=== PATIENT | male | born 1965 | race Caucasian/White ===

== ENCOUNTER 2022-07-15 06:38 | Emergency (ER) | payer OTHER, SELFPAY ==
[2022-07-15] VITALS (12 sets, daily range): BP systolic 128–144; BP diastolic 79–98; PULSE 64–71; RESP 16–20; TEMP 36.6; O2SAT 84–100; BMI 24.4
[2022-07-15] MEDS: THIAMINE 100 MG TABLET PO (07:36)
[2022-07-15 07:50] LABS: Basophils Percent Auto 1.1 % (0.0-3.0); Eosinophils Percent Auto 1.1 % (0.0-7.0); Hematocrit 37.7 % (37.0-53.0); Immature Granulocytes Pct Auto 0.5 %; Lymphocytes Percent Auto 22.9 % (20-44); Mean Corpuscular HGB Conc 35 gm/dL (32-36); Mean Corpuscular Hemoglobin 33 pg (26-34); Mean Corpuscular Volume 96 fL (80-100); Monocytes Percent Auto 8.2 % (0.0-11.0); Neutrophils Percent Auto 66.2 % (42.0-72.0); RDW Coefficient of Variation % 14.6 % (11.5-15.5); Red Blood Count 3.91 m/uL (4.30-5.90); White Blood Count* 3.76 K/uL (4.50-11.00)
--- NOTE | 2022-07-15 07:53 | ED.GENADULT ---
HPI - General Adult General Chief complaint: Back Injury/Pain Stated complaint: back pain Time Seen by Provider: 07/15/22 06:48 Source: patient and family Mode of arrival: ambulatory History of Present Illness HPI narrative: 57-year-old male with known history of chronic low back pain and chronic liver disease with alcoholism presents to the emergency department nonspecific complaints. In his report that he is unable to care for himself at home. Am able to pull up an epic note explaining his longstanding history of continued alcohol use with significant cirrhosis and longstanding back issues. At that visit, he was also unable to care for himself on 1 for. Family reporting that he has had a 1 month decline. He continues to drink alcohol. His admits that she gets it for him. He states that he drinks due to his back pain and cannot stop drinking because his pain is uncontrolled. It looks as though he has had appropriate referrals for marketing project specialist. It looks as though he has also had an office visit with GI regarding his alcoholism from 06/17/2022. As stated he continues to drink. States that he is currently drinking about 8 oz of hard alcohol in a glass per day but his answers change frequently throughout our interview. He is unable to get himself up and go to the bathroom. It sounds as though this has been gradually coming on, denies any new trauma or injury. He also has a known inguinal hernia which appears to have been investigated on 06/20/2022 in the emergency department. Family reports that the last time he was sent to the hospital ?they gave him pills and did not do anything?. I have not yet had time to review that full hospitalization. I do also have records from an MRI of the back basically showing some degenerative changes but no severe impairment or cauda equina syndrome or spinal impingement. When I specifically ask his if she thinks he needs to be in a longterm, she wants a clarification of what those goals would be. I explained that he would probably receive about 30 minutes of physical therapy per day and assistance getting to the bathroom. If he is still drinking he is not a good candidate for an intensive rehab center. She is uncertain if this would be beneficial. It sounds as though the family does not have appropriate insight into the severity of his liver disease or have chosen not to accept this diagnosis. I do clarify that there were absolutely no acute changes today that made him come to a new emergency department when all of their care has been through [facility] and [facility]. Medical history in summary is most notable for severe alcoholic cirrhosis, chronic back pain, hypertension. He also seems to have a history of depression. It looks as though he was recently started on Lyrica as previously been on Celebrex. It looks as though Valium and [place] were discontinued. Clinic note from 07/07/2022 is extensively reviewed. Allergies are to azithromycin causing rash. Socially patient continues to have significant alcohol intake and declining overall function but does remain his own guardian. Related Data Home Medications Medication Instructions Recorded Confirmed celecoxib 100 mg capsule mg 07/15/22 cyclobenzaprine 10 mg tablet mg 07/15/22 diazepam 5 mg tablet mg 07/15/22 furosemide 40 mg tablet mg 07/15/22 hydrocodone 5 mg-acetaminophen 325 tab 07/15/22 mg tablet ibuprofen 800 mg tablet mg 07/15/22 losartan 50 mg-hydrochlorothiazide tab 07/15/22 12.5 mg tablet methocarbamol 500 mg tablet mg 07/15/22 pregabalin 75 mg capsule mg 07/15/22 spironolactone 100 mg tablet mg 07/15/22 Allergies Allergy/AdvReac Type Severity Reaction Status Date / Time azithromycin Allergy Mild Rash Verified 07/15/22 07:08 [facility] Medical History Alcohol dependence Alcohol-induced chronic pancreatitis Alcoholic steatohepatitis Anxiety Chronic midline low back pain with sciatica Essential hypertension Non-recurrent unilateral inguinal hernia without obstruction or gangrene Polyarthralgia Thrombocytopenia Social History Smoking Status: Current every day smoker What tobacco products do you use: cigarettes Smoking packs per day: 1 Smoking cigarettes per day: 20.0 Second hand tobacco smoke exposure: No How often do you have a drink containing alcohol: 4 or more times a week How many standard drinks containing alcohol do you have on a typical day: 7 to 9 How often do you have six or more drinks on one occasion: Daily or almost daily AUDIT-C Alcohol total score: 11 Non-prescribed substance use: denies use service: Yes Exam Const: Vital Signs, click to edit/add: Vital Signs - 24 hr 07/15/22 06:52 07/15/22 08:31 07/15/22 08:32 Temperature 97.8 F Pulse Rate 66 65 Pulse Rate [Left P ulse Oximeter] 70 Respiratory Rate 20 16 Blood Pressure 135/89 Blood Pressure [Ri ght Upper Arm] 144/93 H Pulse Oximetry 97 98 98 Oxygen Delivery Me thod Room Air Nasal Cannula Oxygen Flow Rate 1 07/15/22 07:00 07/15/22 07:30 07/15/22 08:00 Temperature Pulse Rate Pulse Rate [Left P ulse Oximeter] 65 66 64 Respiratory Rate Blood Pressure Blood Pressure [Ri ght Upper Arm] 144/93 H 140/79 H 130/82 Pulse Oximetry 95 100 96 Oxygen Delivery Me thod Nasal Cannula Nasal Cannula Nasal Cannula Oxygen Flow Rate 1 1 1 07/15/22 08:20 Temperature Pulse Rate Pulse Rate [Left P ulse Oximeter] 68 Respiratory Rate Blood Pressure Blood Pressure [Ri ght Upper Arm] 128/98 H Pulse Oximetry 99 Oxygen Delivery Me thod Nasal Cannula Oxygen Flow Rate 1 Documenting provider has reviewed patient's vital signs: yes Common normals: no apparent distress Other: Poor insight, smells of ammonia and alcohol HENMT: Common normals: normocephalic and head/scalp atraumatic Head and scalp: normocephalic and atraumatic Mouth: oral and palatal mucosa normal Throat: posterior oropharynx normal Eye: Other: Mild scleral icterus with injected conjunctiva. Neck & C-Spine: Common normals: full ROM and no lymphadenopathy Lymph: Lymphatic: no lymphadenopathy noted Resp: Common normals: normal respiratory effort, no use of accessory muscles and clear to auscultation bilaterally Auscultation: clear to auscultation bilaterally Other: sLight slurring of his words Cardio: Common normals: regular rate, regular rhythm, S1 normal heart sound, S2 normal heart sound and no murmurs Rate: regular rate Rhythm: regular rhythm Heart sounds: S1 normal and S2 normal GI: Other: Moderate ascites noted. Liver is enlarged 4 cm below the costal margin. Nontender. No obvious mass. Lower abdominal bulge consistent with hernia is noted though not thoroughly examined. Extremity: Other: 1+ edema to lower extremities. Overall muscle wasting noted. Patient with weakness to dorsiflexion mildly bilaterally but has plantar flexion and good flexion at the hips and knees still. Can move his upper extremities on command. No asterixis. Minimal tremor of the hands noted. Neuro: Other: Cerebellar testing appears normal. Psych: Attitude: calm Activity/motor behavior: appropriate eye contact Thought process: circumstantial Insight: poor Judgement: poor Skin: Narrative: Mild jaundice to face only. Course Vital Signs Vital signs: Initial Vital Signs Temperature 97.8 F 07/15/22 06:52 Temperature Source Temporal Artery Scan 07/15/22 06:52 Pulse Rate 70 07/15/22 06:52 Pulse Rhythm 07/15/22 06:52 Respiratory Rate 20 07/15/22 06:52 Blood Pressure 144/93 H 07/15/22 06:52 Blood Pressure Mean 110 07/15/22 06:52 Blood Pressure Position Semi-Fowlers 07/15/22 06:52 Pulse Oximetry 97 07/15/22 06:52 Oxygen Delivery Method 07/15/22 06:52 Vital Signs Temperature 97.8 F 07/15/22 06:52 Pulse Rate 70 07/15/22 06:52 Respiratory Rate 20 07/15/22 06:52 Blood Pressure 144/93 H 07/15/22 06:52 Pulse Oximetry 97 07/15/22 06:52 Oxygen Delivery Method 07/15/22 06:52 Temperature 97.8 F 07/15/22 06:52 Pulse Rate 65 07/15/22 08:32 Respiratory Rate 16 07/15/22 08:31 Blood Pressure 135/89 07/15/22 08:31 Pulse Oximetry 98 07/15/22 08:32 Oxygen Delivery Method 07/15/22 08:31 Oxygen Flow Rate 1 07/15/22 08:31 Medical Decision Making MDM Narrative Medical decision making narrative: Clinic notes give me the impression that this is a gradual and not sudden decline. All of my physical findings are consistent with his outpatient documented notes. Ever eats that he drinks due to his back pain. I think his insight into his degree of liver dysfunction is a significant problem. I counseled he and his that we should recheck labs to determine is degree of liver dysfunction. I have also let them know we will not be managing his chronic back pain at all today. This will need to be addressed with their outpatient provider. Will check alcohol levels, ammonia levels. There may be an underlying neurological issue as well that is chronic in nature and will be difficult to characterize while he is still drinking. The MRI taken less than 2 months ago does not suggest any cauda equina syndrome or other specific pathology that would explain his weakness. I suspect that this is from his alcohol use. His gave me the impression that they would not be wanting to pursue a longterm but she is uncertain of what to do now. I think they could benefit from a social media coordinator consult and I will place this. Update: Let family know about abnormal labs, low platelets and markedly elevated alcohol level. He is willing to go to detox. We would not do any intervention with the low platelets. This is likely secondary to alcoholism. He is medically cleared to go to detox. He will need outpatient follow-up once he is sober regarding multiple abnormal labs, but these all need to take a backseat to sobriety. is very supportive of him getting intensive alcohol treatment. I did let her know that there could be an underlying neurological disorder that we cannot detect but until he is sober, it will be impossible to treat and/or detect and she was understanding of this. His MRI does not give any clues as to his debility and this should not be further pursued. We are looking into a detox facility, I will be handing over care to day shift partners. Lab Data Labs: Lab Results 07/15/22 07/15/22 07/15/22 Range/Units 07:32 07:32 07:32 WBC 3.76 L (4.50-11.00) K/uL RBC 3.91 L (4.30-5.90) m/uL Hgb 13.0 L (13.5-17.5) gm/dL Hct 37.7 (37.0-53.0) % MCV 96 (80-100) fL MCH 33 (26-34) pg MCHC 35 (32-36) gm/dL RDW Coeff of Marie 14.6 (11.5-15.5) % Plt Count 38 L* (140-440) K/uL Neut % (Auto) 66.2 (42.0-72.0) % Lymph % (Auto) 22.9 (20-44) % [place] % (Auto) 8.2 (0.0-11.0) % Eos % (Auto) 1.1 (0.0-7.0) % Baso % (Auto) 1.1 (0.0-3.0) % Neut # (Auto) 2.50 (1.7-7.0) K/uL Lymph # (Auto) 0.90 (0.90-2.90) K/uL [place] # (Auto) 0.30 (0.00-0.90) K/UL Eos # (Auto) 0.00 (0.00-0.50) K/uL Baso # (Auto) 0.00 (0.00-0.30) K/uL Sodium 145 (135-149) mmol/L Potassium 3.8 (3.6-5.1) mmol/L Chloride 104 (96-114) mmol/L Carbon Dioxide 32 (20-32) mmol/L BUN 8 (7-30) mg/dL Creatinine 0.6 (0.5-1.5) mg/dL Estimated Creat Clear 143.63 Estimated GFR 114 ml/min Glucose 93 (60-115) mg/dL Calcium 8.1 L (8.4-10.6) mg/dL Magnesium 1.8 (1.5-2.6) mg/dL Total Bilirubin 3.7 H (0.1-1.5) mg/dL AST 181 H (12-35) U/L ALT 49 (4-50) U/L Alkaline Phosphatase 115 (40-150) U/L Ammonia 12.0 L (13.1-30.0) umol/L Total Protein 7.3 (6.0-8.3) g/dL Albumin 3.9 (3.3-5.0) g/dL Lipase 603 H (23-300) U/L Ethyl Alcohol (0.01-0.03) % Discharge Plan Discharge Prescriptions: No Action cyclobenzaprine 10 mg tablet Label Comments: TAKE ONE TABLET BY MOUTH THREE TIMES DAILY furosemide 40 mg tablet Label Comments: Take 1 Tablet (40 mg) by mouth daily. methocarbamol 500 mg tablet Label Comments: Take 1-2 Tablets (500-1,000 mg) by mouth at bedtime as needed (muscle spasms). ibuprofen 800 mg tablet Label Comments: Take 1 Tablet (800 mg) by mouth 3 times daily if needed for Pain. hydrocodone-acetaminophen 5-325 mg tablet Label Comments: Take 1 Tablet by mouth every 6 hours if needed for Pain. Max acetaminophen dose: 4000 mg in 24 hrs. spironolactone 100 mg tablet Label Comments: Take 1 Tablet (100 mg) by mouth daily. losartan-hydrochlorothiazide 50-12.5 mg tablet Label Comments: TAKE ONE TABLET BY MOUTH ONE TIME DAILY celecoxib 100 mg capsule Label Comments: TAKE ONE CAPSULE BY MOUTH TWICE DAILY WITH FOOD FOR 30 DAYS diazepam 5 mg tablet pregabalin 75 mg capsule Label Comments: Take 1 Capsule (75 mg) by mouth two times a day. Follow Up/Referrals: Provider,Not a Local [Primary Care Provider] -
[2022-07-15 08:00] LABS: Chloride* 104 mmol/L (96-114)
[2022-07-15 08:01] LABS: Albumin* 3.9 g/dL (3.3-5.0); Potassium* 3.8 mmol/L (3.6-5.1); Sodium* 145 mmol/L (135-149)
[2022-07-15 08:04] LABS: Alanine Aminotransferase* 49 U/L (4-50); Alkaline Phosphatase* 115 U/L (40-150); Aspartate Amino Transferase* 181 U/L (12-35); Bilirubin Total* 3.7 mg/dL (0.1-1.5); Blood Urea Nitrogen* 8 mg/dL (7-30); Calcium* 8.1 mg/dL (8.4-10.6); Carbon Dioxide* 32 mmol/L (20-32); Creatinine* 0.6 mg/dL (0.5-1.5); Est. Creatinine Clearance* 143.63; Estimated Glomerular Filt Rate 114 ml/min; Glucose* 93 mg/dL (60-115); Lipase* 603 U/L (23-300); Total Protein* 7.3 g/dL (6.0-8.3)
[2022-07-15 08:05] LABS: Magnesium* 1.8 mg/dL (1.5-2.6)
[2022-07-15 08:27] LABS: Platelet Count* 38 K/uL (140-440)
--- NOTE | 2022-07-15 08:27 | ED.NURSE ---
critical lab of ETOH 0.40 and platletts of 38 called from lab. aware
[2022-07-15] MEDS: NICOTINE 21 MG PATCH 1 PATCH TRANSDERMA (08:28)
--- NOTE | 2022-07-15 08:58 | PC.NURSE ---
Patient was on 1L NC when ambulance brought him in. Trialed him on RA. Does desaturate when asleep. Has sleep apnea and does not have his unit here nor is he compliant with it at home. Placed him back on 1L NC while asleep. was notified of this and okay with that.
[2022-07-15 09:32] LABS: SARS PCR* Negative SARS-CoV-2 (Negative)
--- NOTE | 2022-07-15 09:54 | PC.NURSE ---
Addendum entered and electronically signed by Mariaelena Savage RN 07/15/22 10:00: Spoke with Rasheeda at [facility] Original Note: Patient was accepted by [facility]. Called dispatch and they will be here within the hour.
--- NOTE | 2022-07-15 10:23 | PC.NURSE ---
Patient left ER with EMS. Report given to Rasheeda at [facility] [place]. aware that patient is going there. All quesitons answered. IV taken out.
[2022-07-15 16:21] LABS: Slide Review Reflex No
== END 2022-07-15 10:24 | disposition home or self-care (01) ==
PROVIDERS: Emergency Provider Family Medicine
DX: M54.50 Low back pain, unspecified (principal); G89.29 Other chronic pain; F10.129 Alcohol abuse with intoxication, unspecified
CPT/HCPCS: 36415; 80053; 82077; 82140; 83690; 83735; 85025; 87635; 99283; 99284; A9270; S4990

== ENCOUNTER 2022-07-15 10:15 | Outpatient (CLI) | payer OTHER, SELFPAY | END 2022-07-15 10:16 | disposition home or self-care (01) | LOC: AMB 07-16 01:03 | PROVIDERS: Visit Provider Emergency Medicine Emergency Medical Services | DX: F10.129 Alcohol abuse with intoxication, unspecified (principal) ==

== ENCOUNTER 2022-07-15 11:38 | Outpatient (CLI) | payer OTHER, SELFPAY | END 2022-07-15 11:39 | disposition home or self-care (01) | LOC: AMB 07-16 00:56 | PROVIDERS: Visit Provider Emergency Medicine Emergency Medical Services | DX: F10.129 Alcohol abuse with intoxication, unspecified (principal) ==

== ENCOUNTER 2022-07-15 12:27 | Emergency (ER) | payer OTHER, SELFPAY ==
[2022-07-15] VITALS (12 sets, daily range): BP systolic 123–155; BP diastolic 70–114; PULSE 63–89; RESP 16–18; TEMP 36.5; O2SAT 89–97
--- NOTE | 2022-07-15 13:49 | ED.GENADULT ---
HPI - General Adult General Chief complaint: Back Injury/Pain Stated complaint: back pain Time Seen by Provider: 07/15/22 13:20 History of Present Illness HPI narrative: This 57-year-old male returns by ambulance after being excepted at [facility] detox. He came in earlier this morning because of back pain. This is a chronic problem for him. His states that he has been on opiates including fentanyl and morphine in the past. He was part of a methadone clinic in this regard but his supplies were removed because he was using alcohol. Now he is no longer on any opiate pain medicines for his chronic degenerative low back pain and so he states that he is using alcohol instead to treat his back pain. He arrived this morning with blood alcohol level at 0.4. He was accepted to [facility] detox and sent there by ambulance. Upon arrival he told them that he was not able to get up and ambulate because of his back pain. When the personnel at the detox center heard this they refused to except him. I had phoned conversation with the ambulance who was at the detox center at the time and stated that the patient can in fact ambulate. He did get up to the bathroom and was able to transfer from the bed to the ambulance cot. The detox center nevertheless refused to except him so he came back here by ambulance. I went in to interview the patient who states that he has chronic back pain. I stated that he in fact can get up and ambulate at which time the patient stated he can do this but he cannot get on and off the toilet without help. Soon after his arrival here the nurse escorted him to the restroom. He was able to sit up on his own and ambulate to the bathroom. He did sit down on the toilet and was able to pull himself up from the toilet without any assistance from anyone. He continues to be significantly intoxicated. He does have liver disease and his platelets this morning were at 38. I did have conversation with his who is now at home stating that he really needs detox and is not a candidate for hospitalization or surgical repair of his back. The patient himself stated that he would just go home. Related Data Home Medications Medication Instructions Recorded Confirmed celecoxib 100 mg capsule mg 07/15/22 cyclobenzaprine 10 mg tablet mg 07/15/22 diazepam 5 mg tablet mg 07/15/22 furosemide 40 mg tablet mg 07/15/22 hydrocodone 5 mg-acetaminophen 325 tab 07/15/22 mg tablet ibuprofen 800 mg tablet mg 07/15/22 losartan 50 mg-hydrochlorothiazide tab 07/15/22 12.5 mg tablet methocarbamol 500 mg tablet mg 07/15/22 pregabalin 75 mg capsule mg 07/15/22 spironolactone 100 mg tablet mg 07/15/22 Allergies Allergy/AdvReac Type Severity Reaction Status Date / Time azithromycin Allergy Mild Rash Verified 07/15/22 07:08 Review of Systems Status of ROS: Reports: 10 or more systems reviewed and unremarkable except as noted in History and below Narrative: Constitutional: No fevers, no weight gain or loss. Eyes: No discharge. No vision changes. HENT: No congestion, no sore throat, no ear pain. Cardiovascular: No chest pain, no palpitations. Respiratory: No shortness of breath, no wheezes, no cough. Gastrointestinal: No abdominal pain, no vomiting, no diarrhea. Genitourinary: No dysuria, no hematuria. Musculoskeletal: Chronic low back pain. He states that he is unable to get on and off the toilet. Skin: No rashes, no pruritis. Neurological: No dizziness, weakness, sensory change, speech change. Endo/Heme/Allergies: No bruising or bleeding. No polydipsia. Pysch: Intoxicated with alcohol. All other systems reviewed and are negative. [facility] Medical History Alcohol dependence Alcohol-induced chronic pancreatitis Alcoholic steatohepatitis Anxiety Chronic midline low back pain with sciatica Essential hypertension Non-recurrent unilateral inguinal hernia without obstruction or gangrene Polyarthralgia Thrombocytopenia Social History Smoking Status: Current every day smoker What tobacco products do you use: cigarettes Smoking packs per day: 1 Smoking cigarettes per day: 20.0 Second hand tobacco smoke exposure: No How often do you have a drink containing alcohol: 4 or more times a week How many standard drinks containing alcohol do you have on a typical day: 7 to 9 How often do you have six or more drinks on one occasion: Daily or almost daily AUDIT-C Alcohol total score: 11 Non-prescribed substance use: denies use service: Yes Exam Narrative: Exam Narrative: Constitutional: Well-developed, well-nourished, no acute distress. HEENT: Normocephalic, atraumatic. Neck: Normal range of motion. Nontender. Supple. Heart: Intact distal pulses. Lungs: No chest discomfort. No wheezes, rhonchi, or rales. Abdomen: Nontender. Back: Normal range of motion. He is able to lift his leg from the bed. He is able to get up and ambulate and did successfully use the toilet without assistance. Extremities: Normal range of motion. No injury. Skin: Intact. No rash. Warm. No erythema or pallor. Neurologic: No altered sensation. No weakness. Alert and oriented. Psychiatric: Intoxicated with alcohol. Nursing notes and vitals signs are reviewed. Const: Vital Signs, click to edit/add: Vital Signs - 24 hr 07/15/22 12:36 07/15/22 13:39 07/15/22 13:40 Temperature 97.7 F Pulse Rate 75 Pulse Rate [Right Pulse Oximeter] 89 Respiratory Rate 18 Blood Pressure 155/101 H Blood Pressure [Ri ght Upper Arm] 151/114 H Pulse Oximetry 95 90 Oxygen Delivery Me thod Room Air 07/15/22 13:52 07/15/22 14:00 07/15/22 14:01 Temperature Pulse Rate 72 64 69 Pulse Rate [Right Pulse Oximeter] Respiratory Rate 16 Blood Pressure 141/92 H 135/75 Blood Pressure [Ri ght Upper Arm] Pulse Oximetry 97 94 94 Oxygen Delivery Me thod Course Vital Signs Vital signs: Initial Vital Signs Temperature 97.7 F 07/15/22 12:36 Temperature Source Temporal Artery Scan 07/15/22 12:36 Pulse Rate 89 07/15/22 12:36 Respiratory Rate 18 07/15/22 12:36 Blood Pressure 151/114 H 07/15/22 12:36 Blood Pressure Mean 126 07/15/22 12:36 Blood Pressure Position Sitting 07/15/22 12:36 Pulse Oximetry 95 07/15/22 12:36 Oxygen Delivery Method 07/15/22 12:36 Vital Signs Temperature 97.7 F 07/15/22 12:36 Pulse Rate 89 07/15/22 12:36 Respiratory Rate 18 07/15/22 12:36 Blood Pressure 151/114 H 07/15/22 12:36 Pulse Oximetry 95 07/15/22 12:36 Oxygen Delivery Method 07/15/22 12:36 Temperature 97.7 F 07/15/22 12:36 Pulse Rate 69 07/15/22 14:01 Respiratory Rate 16 07/15/22 14:01 Blood Pressure 135/75 07/15/22 14:01 Pulse Oximetry 94 07/15/22 14:01 Oxygen Delivery Method 07/15/22 12:36 Medical Decision Making MDM Narrative Medical decision making narrative: This patient is intoxicated with alcohol and has chronic low back pain. He needs to be placed in detox and was willing to go but states that he is unable to ambulate or at least get on and off the toilet without assistance. There is evidence here that he in fact did get up and ambulate to the toilet and use it and returned to his bed without any such assistance. A social service consult is ordered and the patient's is willing to come for this meeting. Having returned from detox at [facility] where they did not accept him, this is now not a good option for him. back up worker did meet with the patient and his . He does have an order for home health care to evaluate and treat. This is soon to be arranged and can include appropriate services for him. The patient and his understand that he can go directly to a detox center if needed. For now he is discharged home. Discharge Plan Discharge Clinical Impression: Chronic low back pain, Alcohol intoxication Patient Disposition: Home w/ Parent or Adult Additional Instructions: Follow-up with home health care as ordered and scheduled. Proceed to detox for managing alcohol withdrawal symptoms. Prescriptions: No Action cyclobenzaprine 10 mg tablet Label Comments: TAKE ONE TABLET BY MOUTH THREE TIMES DAILY furosemide 40 mg tablet Label Comments: Take 1 Tablet (40 mg) by mouth daily. methocarbamol 500 mg tablet Label Comments: Take 1-2 Tablets (500-1,000 mg) by mouth at bedtime as needed (muscle spasms). ibuprofen 800 mg tablet Label Comments: Take 1 Tablet (800 mg) by mouth 3 times daily if needed for Pain. hydrocodone-acetaminophen 5-325 mg tablet Label Comments: Take 1 Tablet by mouth every 6 hours if needed for Pain. Max acetaminophen dose: 4000 mg in 24 hrs. spironolactone 100 mg tablet Label Comments: Take 1 Tablet (100 mg) by mouth daily. losartan-hydrochlorothiazide 50-12.5 mg tablet Label Comments: TAKE ONE TABLET BY MOUTH ONE TIME DAILY celecoxib 100 mg capsule Label Comments: TAKE ONE CAPSULE BY MOUTH TWICE DAILY WITH FOOD FOR 30 DAYS diazepam 5 mg tablet pregabalin 75 mg capsule Label Comments: Take 1 Capsule (75 mg) by mouth two times a day. Follow Up/Referrals: Provider,Not a Local [Primary Care Provider] - Stand Alone Forms: [employer] Info Instructions
--- NOTE | 2022-07-15 14:01 | ED.NURSE ---
Patient stated he had to go to the bathroom. RN went to get a walker and urinal. When journalists and other writers came back, patient was sitting at the end of the bed. Patient stated I can't stand up on own.Truck Sales Representative stated she would be next to him and help him if needed. Patient was able to rise from bed to standing without the need of assistance. Truck Sales Representative did hold urinal as patient was holding up his sweatshirt and then holding his penis into the urinal. When patient was done, he used tissue and wiped self and then turned around and crawled back into bed on his own. Patient voided 400cc of dark orange urine. foreign exchange services manager was also contacted to come see patient. She is able to come down this afternoon. Truck Sales Representative called , Breanne who said she will be here in 20 min.
--- NOTE | 2022-07-15 14:35 | ED.NURSE ---
commissioner of relocation services meeting with per MD request.
--- NOTE | 2022-07-15 15:11 | PC.SOCIAL ---
Discharge planning: Met with at her request. is interested in finding substance treatment for pt. states he will not voluntarily go to treatment. is aware that detox facilities will not accept pt if he is in need of assistance, which pt states he is. is interested in information on substance treatment resources in their area and would like these emailed to her. Discussed the current situation of programs having waiting lists and that he needs to be active in contacting and getting on waiting lists. herbarium worker to send her resources for out-pt and in-pt substance treatment options. states she will take him home at discharge. Met with pt who states he stopped drinking on his own a few months ago by weaning himself off alcohol at home. Pt states he plans to do this again. Pt states he did not use any programs or therapy when he was not using alcohol and would be interested in information on available resources. Pt states he does not use email and requested the information be sent to his . herbarium worker to send these resources to for follow up.
== END 2022-07-15 16:16 | disposition home or self-care (01) ==
PROVIDERS: Emergency Provider Emergency Medicine Emergency Medical Services
DX: M54.50 Low back pain, unspecified (principal); G89.29 Other chronic pain
CPT/HCPCS: 99199; 99285